=== PATIENT | male | born 1990 | race Caucasian/White ===

== ENCOUNTER 2017-02-14 15:18 | Emergency (ER) | payer OTHER ==
[~2017-02-14] VITALS: Ht 175.3 cm; Wt 77.4 kg
[2017-02-14 15:22] VITALS: TEMP 36.7; Ht 175.3 cm; Wt 77.4 kg
[2017-02-14 16:02] LABS: BASO % 0.3 %; BASO ABS # 0.02 K/uL (0-0.2); COMPLETE YES; EOS % 0.3 %; HEMATOCRIT 42.9 % (42-52); IG% 0.2 %; LYMPH % 21.2 %; LYMPH ABS # 1.34 K/uL (1.2-3.4); MEAN CELL VOLUME 84.8 fL (80-100); MEAN CORPUSCULAR HEMOGLOBIN 29.2 pg (25-34); MEAN CORPUSCULAR HGB CONC 34.5 g/dl (32-36); MEAN PLATELET VOLUME 10.2 fL (7.4-10.4); MONO % 9.8 %; NEUT % 68.2 %; PLATELET COUNT 213 K/uL (130-400); RED BLOOD COUNT 5.06 M/uL (4.7-6.1); WHITE BLOOD COUNT 6.33 K/uL (4.8-10.8)
[2017-02-14 16:24] LABS: ALT/SGPT 19 U/L (12-78); BLOOD UREA NITROGEN 8 mg/dl (7-18); CARBON DIOXIDE 24 mmol/L (21-32); CHLORIDE 103 mmol/L (98-107); GLUCOSE 95 mg/dl (70-99); POTASSIUM 3.5 mmol/L (3.5-5.1); SODIUM 138 mmol/L (136-145)
[2017-02-14 16:35] LABS: ALKALINE PHOSPHATASE 52 U/L (45-117); AST/SGOT 20 U/L (15-37)
[2017-02-14] MEDS ORDERED: TRAZ50TA35 PO (17:12)
[2017-02-14] MEDS ORDERED: RISPERDAL PO (17:12)
[2017-02-14] MEDS ORDERED: BUPR-83 PO (17:12)
[2017-02-14] MEDS ORDERED: CTP/1 PO (17:12)
[2017-02-14 17:29] LABS: URINE APPEARANCE CLEAR (CLEAR); URINE BILIRUBIN NEG (NEG); URINE COLOR YELLOW; URINE NITRITE NEG (NEG); URINE PH 6.5 (4.5-7.5); URINE SPECIFIC GRAVITY 1.012 (1.000-1.030); UROBILINOGEN NEG (NEG)
--- NOTE | 2017-02-14 17:31 | EMERGENCY ROOM VISIT NOTE ---
History Report prepared by Yeny: James Kang Under the Supervision of: Dr. Ramirez Valladares D.O. First contact with patient: 15:29 Chief Complaint: MENTAL HEALTH EVALUATION Stated Complaint: [id number] WARRENT ATTACHED TO PAPERWORK History of Present Illness The patient is a 26 year old male who presents to the Emergency Room on a 302d warrant for suicidal ideations filed prior to arrival. The patient reports that this morning he was kicked out of his house by his now ex-girlfriend. He states that she reported that he had suicidal ideations. The patient denies suicidal and homicidal ideations. He states he never tried to hurt himself or anyone else. He reports that his ex-girlfriend must have misinterpreted his statement, "I may be found because I have to walk in this heat." The patient states that he said this because it was extremely hot out and did not have a car. He notes that he missed his doses of medication this morning because he was kicked out, and they were at the house. The patient reports that he does not have any open wounds or sores. He states that he has been admitted before, but he would not give a reason. The patient notes that he has been admitted before. Lo, the disease case manager rn, spoke with the patients father, and he said the patient has made suicidal statement previously this week. He believes the patient is in danger to himself. The last time he was admitted, he held a knife to his throat. Source of History: patient Onset: prior to arrival Note: Denies suicidal and homicidal ideations. Review of Systems See HPI for pertinent positives & negatives. A total of 10 systems reviewed and were otherwise negative. Past Medical & Surgical Medical Problems: (1) Anxiety (2) Depressed Family History Diabetes mellitus FH: heart disease Social History Smoking Status: Never Smoker Alcohol Use: none Drug Use: none Marital Status: Housing Status: lives with significant other Occupation Status: unemployed Current/Historical Medications Scheduled Bupropion (Wellbutrin), 100 MG PO QAM Clonidine Hcl (Catapres), 0.1 MG PO BID Trazodone Hcl (Trazodone), 50 MG PO HS [Risperdal], 1 TAB PO HS Allergies Coded Allergies: No Known Allergies (Unverified , 02/14/17) Physical Exam Vital Signs Date Time Temp Pulse Resp B/P (MAP) Pulse Ox O2 Delivery O2 Flow Rate FiO2 02/14/17 17:00 79 16 114/80 99 Room Air 02/14/17 15:22 36.7 93 16 122/86 97 Room Air Physical Exam GENERAL: alert, well appearing, well nourished, no distress, non-toxic EYE EXAM: normal conjunctiva OROPHARYNX: no exudate, no erythema, lips, buccal mucosa, and tongue normal and mucous membranes are moist NECK: supple, no nuchal rigidity, no adenopathy, non-tender LUNGS: Clear to auscultation. Normal chest wall mechanics HEART: no murmurs, S1 normal and S2 normal ABDOMEN: abdomen soft, non-tender, normo-active bowel sounds, no masses, no rebound or guarding. BACK: Back is symmetrical on inspection and there is no deformity, no midline tenderness, no CVA tenderness. SKIN: no rashes and no bruising UPPER EXTREMITIES: upper extremities are grossly normal. LOWER EXTREMITIES: No pitting edema. NEURO EXAM: Normal sensorium, cranial nerves II-XII intact, normal speech, no weakness of arms, no weakness of legs. PSYCH: Denies suicidal and homicidal ideations, denies auditory and visual hallucinations, 302 warrant states the patient made two separate suicidal statements Medical Decision & Procedures Laboratory Results 02/14/17 15:43 Red Blood Count 5.06, Mean Corpuscular Volume 84.8, Mean Corpuscular Hemoglobin 29.2, Mean Corpuscular Hemoglobin Concent 34.5, Mean Platelet Volume 10.2, Neutrophils (%) (Auto) 68.2, Lymphocytes (%) (Auto) 21.2, Monocytes (%) (Auto) 9.8, Eosinophils (%) (Auto) 0.3, Basophils (%) (Auto) 0.3, Neutrophils # (Auto) 4.32, Lymphocytes # (Auto) 1.34, Monocytes # (Auto) 0.62, Eosinophils # (Auto) 0.02, Basophils # (Auto) 0.02 02/14/17 15:43 Test 02/14/17 15:43 02/14/17 15:44 02/14/17 16:55 White Blood Count 6.33 K/uL (4.8-10.8) Red Blood Count 5.06 M/uL (4.7-6.1) Hemoglobin 14.8 g/dL (14.0-18.0) Hematocrit 42.9 % (42-52) Mean Corpuscular Volume 84.8 fL (80-100) Mean Corpuscular Hemoglobin 29.2 pg (25-34) Mean Corpuscular Hemoglobin Concent 34.5 g/dl (32-36) Platelet Count 213 K/uL (130-400) Mean Platelet Volume 10.2 fL (7.4-10.4) Neutrophils (%) (Auto) 68.2 % Lymphocytes (%) (Auto) 21.2 % Monocytes (%) (Auto) 9.8 % Eosinophils (%) (Auto) 0.3 % Basophils (%) (Auto) 0.3 % Neutrophils # (Auto) 4.32 K/uL (1.4-6.5) Lymphocytes # (Auto) 1.34 K/uL (1.2-3.4) Monocytes # (Auto) 0.62 K/uL (0.11-0.59) Eosinophils # (Auto) 0.02 K/uL (0-0.5) Basophils # (Auto) 0.02 K/uL (0-0.2) RDW Standard Deviation 38.1 fL (36.4-46.3) RDW Coefficient of Variation 12.6 % (11.5-14.5) Immature Granulocyte % (Auto) 0.2 % Immature Granulocyte # (Auto) 0.01 K/uL (0.00-0.02) Anion Gap 11.0 mmol/L (3-11) Est Creatinine Clear Calc Drug Dose 91.7 ml/min Estimated GFR () 94.8 Estimated GFR (Non- 81.8 BUN/Creatinine Ratio 7.0 (10-20) Calcium Level 9.3 mg/dl (8.5-10.1) Total Bilirubin 0.6 mg/dl (0.2-1) Direct Bilirubin < 0.1 mg/dl (0-0.2) Aspartate Amino Transf (AST/SGOT) 20 U/L (15-37) Alanine Aminotransferase (ALT/SGPT) 19 U/L (12-78) Alkaline Phosphatase 52 U/L (45-117) Total Protein 7.8 gm/dl (6.4-8.2) Albumin 4.4 gm/dl (3.4-5.0) Thyroid Stimulating Hormone (TSH) 1.100 uIu/ml (0.300-4.500) Ethyl Alcohol mg/dL < 3.0 mg/dl (0-3) Bedside Glucose 103 mg/dl (70-99) Urine Color YELLOW Urine Appearance CLEAR (CLEAR) Urine pH 6.5 (4.5-7.5) Urine Specific [place] 1.012 (1.000-1.030) Urine Protein NEG (NEG) Urine Glucose (UA) NEG (NEG) Urine Ketones NEG (NEG) Urine Occult Blood NEG (NEG) Urine Nitrite NEG (NEG) Urine Bilirubin NEG (NEG) Urine Urobilinogen NEG (NEG) Urine Leukocyte Esterase NEG (NEG) Urine Opiates Screen NEG (NEG) Urine Methadone, Qualitative NEG (NEG) Urine Barbiturates NEG (NEG) Urine Phencyclidine (PCP) Level NEG (NEG) Ur Amphetamine/Methamphetamine NEG (NEG) MDMA (Ecstasy) Screen POS (NEG) Urine Benzodiazepines Screen NEG (NEG) Urine Cocaine Metabolite NEG (NEG) Urine Marijuana (THC) NEG (NEG) Laboratory results per my review. ED Course ED COURSE: Vital signs were reviewed and showed hypertension The patients medical record was reviewed The above diagnostic studies were performed and reviewed. ED treatments and interventions as stated above. 1547: The patient was evaluated in room A05. A complete history and physical examination was performed. 2004: I spoke with the patient's ex-girlfriend, and she confirmed the statements on his 302 warrant. 2006: I signed the patient's 302 warrant. 2304: The patient is being suspended until tomorrow morning. The patient will be signed out to [facility] [place]. Medical Decision Differential diagnosis: Etiologies such as mood disorder, infection, hypoglycemia, electrolyte abnormalities, cardiac sources, intracerebral event, toxicologic, neurologic, as well as others were entertained. Medication Reconciliation: I attest that I have personally reviewed the patient' s current medication list. Blood pressure screening: Patient was found to have an elevated blood pressure and was referred to their primary doctor for recheck and further treatment. Patient is a 18-year-old male who is brought in by police on a 302 warrant making the following statements to his now ex-girlfriend that he was not going to be alive tomorrow. Patient admits to me that he has no thoughts of self- harm. He admits that he has not made any statements of self-harm. He admits no previous suicide attempts. My care management discussed with his father who notes that he has made suicidal statement to him this week and that he feels that he is a danger to himself. Following the discussion with the ex- girlfriend in regards to her 302 I felt it was reasonable to sign this as both the ex-girlfriend and father collaborate the suicidal statement. Patient has also shown that he is deceitful as he denied any previous suicidal thoughts/ attempts but has previously held a knife to his own throat. 302 was signed as he did not want to sign himself in. He is medically cleared for bed search. Impression Primary Impression: Depression Additional Impression: Suicidal ideation Scribe Attestation The scribe's documentation has been prepared under my direction and personally reviewed by me in its entirety. I confirm that the note above accurately reflects all work, treatment, procedures, and medical decision making performed by me. Departure Information Referrals No Doctor, Assigned (PCP) Patient Instructions My [facility] Problem Qualifiers Primary Impression: Depression Depression Type: unspecified Qualified Codes: F32.9 - Major depressive disorder, single episode, unspecified
[2017-02-14 17:36] LABS: MANUAL MICROSCOPIC REQUIRED? NO; REVIEW REQ? NO
[2017-02-14 17:51] LABS: CALCIUM 9.3 mg/dl (8.5-10.1)
[2017-02-14 18:16] LABS: BENZODIAZEPINE, URINE NEG (NEG); COCAINE,URINE NEG (NEG); PHENCYCLIDINE, URINE NEG (NEG)
--- NOTE | 2017-02-15 06:11 | EMERGENCY ROOM VISIT NOTE ---
ED Visit Note 26 yr old male signed out to me by Dr Valladares awaiting mental health placement. 302 Warrant already signed and patient medically clear by Dr Valladares. He was threatening to kill himself. Issues with mental health placement overnight and bed search suspended until 9am. Patient signed out to Dr Thomas awaiting placement.
[2017-02-15] MEDS ORDERED: CLONIDINE HCL 0.1 MG TAB PO ONE (10:00)
[2017-02-15 13:45] VITALS: BP 117/78; PULSE 94; O2SAT 98
--- NOTE | 2017-02-15 14:56 | EMERGENCY ROOM VISIT NOTE ---
ED Visit Note First contact with patient: 09:39 I received this patient in signout at the change of shift from Dr. Mcdonald, pending mental health placement. He has been accepted at the [facility] and secure transportation arrangements have been made. Please refer to previous documentations for further history of the history, physical and visit.
== END 2017-02-15 13:47 ==
LOC: C.EDB 15:20 → C.EDA 02-15 13:47
DX: F32.9 Major depressive disorder, single episode, unspecified (principal); R45.851 Suicidal ideations; F41.8 Other specified anxiety disorders; Z83.3 Family history of diabetes mellitus; Z82.49 Family history of ischemic heart disease and other diseases of the circulatory system